=== PATIENT | male | born 1935 | race Caucasian/White ===

== ENCOUNTER 2020-01-20 09:36 | Day surgery (SDC) | payer MEDICARE, OTHER ==
[~2020-01-20] VITALS: Ht 165.1 cm; Wt 88.9 kg
[2020-01-20] VITALS (10 sets, daily range): BP systolic 110–184; BP diastolic 52–78
--- NOTE | 2020-01-20 08:07 | Pre-Procedure Note/Attestation ---
Pre-Procedure Note/Attestation Complete Prior to Procedure Planned Procedure: left Procedure Narrative: Hydrocelectomy left Indications for Procedure Pre-Operative Diagnosis: left complex hydrocele Attestation I attest that I discussed the nature of the procedure; its benefits; risks and complications; and alternatives (and the risks and benefits of such alternatives), prior to the procedure, with the patient (or the patient's legal route service representative). I attest that, if there was a reasonable possibility of needing a blood transfusion, the patient (or the patient's legal route service representative) was given the [facility] standardized written summary, pursuant to the [place] Blood Safety Act ([place] Health and Safety Code # 1645, as amended). I attest that I re-evaluated the patient just prior to the surgery and that there has been no change in the patient's H&P, except as documented below: Esteban Loja MD Jan 20, 2020 08:07
[~2020-01-20 09:36] MED LIST: AMOXICILLIN500 M1 PO; ASPIRIN EC81 MG ORAL; CRESTOR20 MG ORAL; FLOMAX0.4 MG ORAL; MAGNESIUM500 MG PO; MECLIZINE HCL25 MG ORAL; NIASPAN500 M1 ORAL; OMEPRAZOLE20 M2 ORAL; OYSTER SHELL C500 MG PO; PYRIDIUM100 MG ORAL; RANEXA1000 MG ORAL; SULFAMETHOXAZO1 EAC2 ORAL; UNOBMED; VESICARE5 MG ORAL; ZANTAC150 MG ORAL; ceFAZolin sod 1 GM in NS 55 ML IVPB ONE
[2020-01-20] MEDS ORDERED: LEVOTHYROXINE100 MC1 IV (10:46)
[2020-01-20] MEDS ORDERED: SLOW RELEASE I159 MG PO (10:47)
[2020-01-20] MEDS ORDERED: HYDRALAZINE HCL25 M1 ORAL (10:48)
[2020-01-20] MEDS ORDERED: Bacitracin Oint 15gm Tube TOPIC ONE (11:36)
[2020-01-20] MEDS ORDERED: Bupivacaine 0.5% Inj 30 ml vial INJ ONE (11:37)
[2020-01-20] MEDS ORDERED: NS Irrig 1000ml ONE (12:45)
[2020-01-20] MEDS ORDERED: Sterile Water Irrig 1000ml IRRIG ONE (12:45)
[2020-01-20] MEDS ORDERED: LR 1000ml ONE (12:45)
[2020-01-20] MEDS ORDERED: Neostigmine 1mg/ml 10ml Inj ONE (12:45)
[2020-01-20] MEDS ORDERED: Lidocaine 1% MPF 10mg/ml 5ml ONE (12:57)
[2020-01-20] MEDS ORDERED: LORazepam Inj 2mg/ml 1ml IV PRN (13:00)
[2020-01-20] MEDS ORDERED: HYDROcodone/Acetamin 7.5/325 tab ORAL PRN (13:00)
[2020-01-20] MEDS ORDERED: Hydromorphone 0.5mg/0.5ml inj IVP PRN (13:00)
[2020-01-20] MEDS ORDERED: Labetalol 5mg/ml 20ml vial IV PRN (13:00)
[2020-01-20] MEDS ORDERED: DiphenhydrAMINE 50mg/ml Inj IVP PRN (13:00)
[2020-01-20] MEDS ORDERED: Midazolam 2mg/2ml Inj ONE (13:00)
[2020-01-20] MEDS ORDERED: oxyCODONE HCL/Acetaminophen 5/325mg ORAL PRN (13:00)
[2020-01-20] MEDS ORDERED: Ketorolac 30mg Inj IV PRN ×2 (13:00)
[2020-01-20] MEDS ORDERED: Atropine Sulfate 0.4mg/ml inj IVP PRN (13:00)
[2020-01-20] MEDS ORDERED: Sodium Chloride 10ml vial INJ ONE (13:00)
[2020-01-20] MEDS ORDERED: LR 1000ml 1,000 ML IVLG SCH (13:00)
[2020-01-20] MEDS ORDERED: HYDROcodone/Acetamin 5/325 tab ORAL PRN ×2 (13:00→13:30)
[2020-01-20] MEDS ORDERED: Meperidine 25mg/0.5ml Inj (FOR RIGORS ONLY) IV PRN (13:00)
[2020-01-20] MEDS ORDERED: fentaNYL 100 mcg/2 mL IV PRN (13:00)
[2020-01-20] MEDS ORDERED: Midazolam 2mg/2ml Inj IVP PRN (13:00)
[2020-01-20] MEDS ORDERED: Metoclopramide 10mg/2ml Inj IVP PRN (13:00)
--- NOTE | 2020-01-20 13:16 | Anethesia Preoperative Eval ---
Anesthesia Pre-op PMH/ROS General Date of Evaluation: Jan 20, 2020 Time of Evaluation: 12:44 Anesthesiologist: Agustin ASA Score: ASA 3 Mallampati Score Class I : Soft palate, uvula, fauces, pillars visible Class II: Soft palate, uvula, fauces visible Class III: Soft palate, base of uvula visible Class IV: Only hard plate visible Mallampati Classification: Class III Surgeon: Purvi Diagnosis: Bilateral Hydroceles Surgical Procedure: Bilateral Hydrocelectomy Anesthesia History: none Family History: no anesthesia problems Allergies: Coded Allergies: No Known Allergies (Unverified , 10/22/12) Medications: see eMAR Patient NPO?: Yes Past Medical History Cardiovascular: Reports: HTN, CAD, other - HL Gastrointestinal/Genitourinary: Reports: GERD Endocrine: Reports: hypothyroidism Hematology/Immune: Reports: other - Prostate CA Musculoskeletal/Integumentary: Reports: OA Other: obesity - BMI 33 Anesthesia Pre-op Phys. Exam Physician Exam Last Vital Signs Date Time Temp Pulse Resp B/P (MAP) Pulse Ox O2 Delivery O2 Flow Rate FiO2 01/20/20 11:00 97.5 64 18 172/78 99 Room Air Constitutional: NAD Neurologic: CN 2-12 intact Cardiovascular: RRR Respiratory: CTA Gastrointestinal: S/NT/ND Airway Exam Mallampati Score: Class III MO: limited ROM: limited Teeth: missing Anesthesia Pre-op A/P Risk Assessment & Plan Assessment: ASA 3 Plan: GA, SED, GlideScope Status Change Before Surgery: No Pre-Antibiotics Dru Gram Ancef IV Given Within 1 Hr of Incision: Yes Time Given: 13:01 Nitin Velez MD Jan 20, 2020 13:16
--- NOTE | 2020-01-20 13:17 | Immediate Post-Op Evaluation ---
Immediate Post-Op Evalulation Immediate Post-Op Evalulation Procedure: Bilateral Hydrocelectomy Date of Evaluation: Jan 20, 2020 Time of Evaluation: 14:19 Blood Products: 0 Estimated Blood Loss: 10 Urinary Output: 0 Blood Pressure Systolic: 179 Blood Pressure Diastolic: 77 Pulse Rate: 63 Respiratory Rate: 16 O2 Sat by Pulse Oximetry: 100 Temperature (Fahrenheit): 99.9 Pain Score (1-10): 2 Nausea: No Vomiting: No Complications 0 Patient Status: awake, reacts, patent, extubated, none Hydration Status: adequate Dru Gram Ancef IV Given Within 1 Hr of Incision: Yes Time Given: 15:01 Nitin Velez MD Jan 20, 2020 13:17
--- NOTE | 2020-01-20 13:24 | Brief Operative Note ---
Immediate Post Operative Note Operative Note Pre-op Diagnosis: bilateral complex hydrocele Procedure: Bilateral hydrocelectomy Post-op Diagnosis: same Post-op Diagnosis: same as pre-op Surgeon: Randy Loja Anesthesia: general Specimen: none Complications: none Condition: stable Fluids: 500 Estimated Blood Loss: minimal Implant(s) used?: No Esteban Loja MD Jan 20, 2020 13:24
[2020-01-20] MEDS ORDERED: Tylenol #3 tab (300mg/30mg) ORAL PRN (13:30)
[2020-01-20] MEDS ORDERED: NS Irrig 1000ml IRRIG ONE (13:30)
[2020-01-20] MEDS ORDERED: HYDROmorphone 1mg/ml Carpuject SUBQ PRN (13:30)
[2020-01-20] MEDS ORDERED: Glycopyrrolate 0.2mg/ml 1ml Vial ONE ×2 (13:55→13:57)
[2020-01-20] MEDS ORDERED: D5 1/2NS 1,000 ML IV SCH (17:00)
--- NOTE | 2020-01-25 20:15 | Operative Note - Dictated ---
DATE OF OPERATION: 01/20/2020 PREOPERATIVE DIAGNOSIS: Bilateral septated hydroceles. POSTOPERATIVE DIAGNOSIS: Bilateral septated hydroceles. OPERATION: Bilateral hydrocelectomy. FAMILY SUPPORT COORDINATOR: Esteban Loja MD ANESTHESIA: General. FINDINGS: Septated bilateral hydroceles. INDICATIONS FOR SURGERY: Patient had complex hydrocele and been drained multiple times with ultrasound-guided aspirations. However, he had progressive increase in size of the hydrocele. Treatment options were explained to him in great length including all potential complications. He signed a consent. DESCRIPTION OF SURGERY: Brought to the operating room, placed in supine position, prepped and draped in standard fashion. Under general anesthesia, a mid scrotal incision was made. Left hydrocele sac was exposed. Tunica vaginalis was opened and approximately 500 mL of bloody fluid was expressed and suctioned. Multiple septi were dissected with sharp and blunt dissection mobilizing the epididymis, testis, and vasal structures. Tunica vaginalis was resected and reapproximated with running 3-0 chromic suture and everted. Similar procedure was done on the right side. Both testicles were placed back into the scrotum. Tunica vaginalis was closed with the dartos fascia in a running 3-0 chromic catgut and skin closed with 4-0 chromic catgut. Esteban Loja M.D. DR: AUGUSTUS JOB#: [id number] CC:
== END 2020-01-20 15:45 | disposition home or self-care (01) ==
LOC: SUR 09:36
DX: N43.3 Hydrocele, unspecified (principal); I11.9 Hypertensive heart disease without heart failure; I25.10 Atherosclerotic heart disease of native coronary artery without angina pectoris; K21.9 Gastro-esophageal reflux disease without esophagitis; E03.9 Hypothyroidism, unspecified; E66.9 Obesity, unspecified; M19.90 Unspecified osteoarthritis, unspecified site; Z85.46 Personal history of malignant neoplasm of prostate; Z68.32 Body mass index [BMI] 32.0-32.9, adult
CPT/HCPCS: 55041; 94003; J0360; J0690; J1100; J2250; J2405; J2704; J2710; J7120; U0002; 94150